=== PATIENT | female | born 1970 | race Hispanic/Latino ===

== ENCOUNTER 2018-08-21 10:25 | Emergency (ER) | payer OTHER ==
--- NOTE | 2018-08-21 10:31 | ED PDOC ---
Arrival/HPI - General Chief Complaint: Abnormal Skin Integrity Time Seen by Provider: 08/21/18 10:26 Historian: Patient - History of Present Illness Narrative History of Present Illness (Text): 08/21/18 10:52 47 y/o female with no significant PMH presents to the ED c/o left facial swelling x 1 day. Noticed a "pimple" to the left side of her nasal bridge and woke up this morning with increased swelling, redness, and warmth. Associated left sided blurry vision and photophobia. No new foods or lotions, NKDA, NKFA. Denies fever, chills, headache, eye pain, nausea, vomiting, dizziness, SOB, abdominal pain, neck pain, or any other associated symptoms. Past Medical History - Provider Review Nursing Documentation Reviewed: Yes - Past Medical History Past Medical History: No Previous - Psychiatric Hx Depression: Yes Hx Emotional Abuse: No Hx Physical Abuse: No - Past Surgical History Past Surgical History: No Previous - Suicidal Assessment Feels Threatened In Home Enviroment: No Family/Social History - Physician Review Nursing Documentation Reviewed: Yes Family/Social History: No Known Family HX Smoking Status: Current Some Days Smoker Hx Alcohol Use: Yes Allergies/Home Meds Allergies/Adverse Reactions: Allergies tolectin Allergy (Uncoded 08/21/18 10:34) RASH Home Medications: Home Meds Medication Instructions Recorded Confirmed No Known Home Med 08/21/18 08/21/18 Review of Systems - Review of Systems Constitutional: Normal Eyes: Vision Changes, Photophobia. absent: Eye Pain ENT: Other (left sided facial swelling). absent: Sore Throat, Sinus Congestion Respiratory: Normal. absent: SOB, Cough Cardiovascular: Normal. absent: Chest Pain, Palpitations, Syncope Gastrointestinal: Normal. absent: Nausea, Vomiting Musculoskeletal: Normal. absent: Back Pain, Neck Pain Skin: Cellulitis Neurological: Normal. absent: Headache, Dizziness Physical Exam Vital Signs Reviewed: Yes Temperature: Afebrile Blood Pressure: Normal Pulse: Regular Respiratory Rate: Normal Appearance: Positive for: Non-Toxic, Uncomfortable Pain Distress: None Mental Status: Positive for: Alert and Oriented X 3 ((+) ETOH on breath) - Systems Exam Head: Present: Atraumatic, Normocephalic, Swelling (Swelling to left side of face over zygoma and periorbitally with erythema; no fluctuance) Pupils: Present: PERRL, Other (vision grossly intact) Extroacular Muscles: Present: EOMI (without pain). No: Other (NO proptosis ) Conjunctiva: Present: Normal Mouth: Present: Moist Mucous Membranes Pharnyx: Present: Normal. No: ERYTHEMA, EXUDATE, Muffled/Hoarse Voice Nose (External): Present: Other (inflamed follice to left side of nasal bridge with (+) erythema, (+) tenderness, (-) fluctuance) Neck: Present: Normal Range of Motion. No: Meningeal Signs Respiratory/Chest: Present: Clear to Auscultation, Good Air Exchange. No: Respiratory Distress, Accessory Muscle Use, Wheezes, Decreased Breath Sounds Cardiovascular: Present: Regular Rate and Rhythm, Normal S1, S2 Upper Extremity: Present: Normal ROM Lower Extremity: Present: Normal ROM Neurological: Present: GCS=15, Speech Normal, Motor Func Grossly Intact, Normal Sensory Function, Gait Normal Skin: Present: Warm, Dry, Normal Color. No: Rashes Psychiatric: Present: Alert, Oriented x 3, Normal Insight, Normal Concentration, Normal Affect, Normal Mood Medical Decision Making ED Course and Treatment: Initial Plan: * Labs * Maxillofacial CT with IV contrast * Visual Acuity * IVF (+) ETOH on breath but patient denies alcohol use. Will get alcohol level. 10:46 Pt unable to tolerate fundoscopic exam secondary to photophobia. 11:42 Alcohol level elevated Bloodwork reviewed, significant for mild hypokalemia, elevated LFTs. Otherwise unremarkable. No leukocytosis 12:00 Patient unwilling to wait for CT imaging, demanding to have her IV line removed so she can leave the ED. Refusing prescriptions or further workup. In my opinion, patient is A&Ox3 and capable of making her own medical decisions at this time. Will have friend or family member assume care of patient from ED secondary to elevated alcohol level. Pt states she will followup with PMD today. Pt called boyfriend to pick her up. The patient is choosing to leave against medical advice. I have personally explained to the patient that choosing to do so may result in permanent bodily harm, disability, vision loss, or . I have discussed at great length that without further evaluation and monitoring there may be unforeseen circumstances and/or deterioration causing permanent bodily harm or as a result of their choice. The patient is alert, oriented, and shows the mental capacity to make cl ear decisions regarding the patients health care at this time. The patient continues to wish to leave against medical advice. In light of the patients decision to leave against medical advice, follow-up has been arranged and the patient is aware of the importance to following up as instructed. The patient has been advised that they should return to the emergency room immediately if they change their mind at any time, or if their condition begins to change or worsen in any way. 12:10 Patient's boyfriend, Andrew Ellison is here to assume care of patient. Effects and risks of alcohol intoxication, as well as risks of orbital and facial cellulitus explained to Mr. Ellison, who verbalized understanding. Both patient and Mr. Ellison signed discharge paperwork and AMA form. Risks of leaving ED and importance of prompt followup explained to both parties, who verbalized understanding. - Lab Interpretations Lab Results: 08/21/18 10:48 08/21/18 10:48 Lab Results 08/21/18 10:48: Alcohol, Quantitative 338 H* 08/21/18 10:48: Sodium 144, Potassium 3.4 L, Chloride 103, Carbon Dioxide 25, Anion Gap 19, BUN 5 L, Creatinine 0.5 L, Est GFR ( Amer) > 60, Est GFR (Non-Af Amer) > 60, Random Glucose 80, Calcium 8.7, Total Bilirubin 1.2, AST 209 H, ALT 111 H, Alkaline Phosphatase 115, Total Protein 7.8, Albumin 4.6, Globulin 3.2, Albumin/Globulin Ratio 1.5 08/21/18 10:48: PT 11.7, INR 1.04, APTT 34.0 08/21/18 10:48: WBC 6.6, RBC 4.03, Hgb 14.7, Hct 42.7, MCV 106.0 H, MCH 36.5 H, MCHC 34.4, RDW 12.4, Plt Count 138, MPV 10.8, Neut % (Auto) 44.5 L, Lymph % (Auto) 48.6 H, Barry % (Auto) 3.2, Eos % (Auto) 2.3, Baso % (Auto) 1.4, Lymph # (Auto) 3.2, Barry # (Auto) 0.2, Eos # (Auto) 0.2, Baso # (Auto) 0.09, Absolute Neuts (auto) 2.93 I have reviewed the lab results: Yes Disposition/Present on Arrival - Present on Arrival Any Indicators Present on Arrival: No History of DVT/PE: No History of Uncontrolled Diabetes: No Urinary Catheter: No History Surgical Site Infection Following: None - Disposition Have Diagnosis and Disposition been Completed?: No Diagnosis: Facial swelling, Cellulitis Disposition: AGAINST MEDICAL ADVICE Disposition Time: 12:00 Condition: GUARDED Discharge Instructions (ExitCare): Cellulitis (ED) Additional Instructions: Followup with PMD TODAY Followup with eye doctor within 2 days Return to ER with any new/worsening symptoms Referrals: Sandrita Hernandes MD [Primary Care Provider] - Follow up with primary Donnie Mueller MD [Staff Provider] - Follow up with primary Forms: [email or web address] ([place]ian)
[2018-08-21 10:34] VITALS: BMI 26.6
[2018-08-21 10:40] VITALS: BP 125/87; PULSE 98; RESP 18; TEMP 97.5; O2SAT 97
[2018-08-21] MEDS ORDERED: Sodium Chloride 0.9% 1,000 ML IV STA (10:45)
[2018-08-21 11:03] LABS: BASO # 0.09 K/mm3 (0.0-2.0); BASO % 1.4 % (0.0-3.0); EOS # 0.2 (0.0-0.7); EOS % 2.3 % (1.5-5.0); HEMOGLOBIN 14.7 g/dL (12.0-16.0); LYMPH # 3.2 (1.2-3.4); LYMPH % 48.6 % (22.0-35.0); MEAN CORPUSCULAR HEMOGLOBIN 36.5 pg (25.0-35.0); MEAN CORPUSCULAR HGB CONC 34.4 g/dl (31.0-37.0); MEAN PLATELET VOLUME 10.8 fl (7.0-11.0); MONO # 0.2 (0.1-0.6); MONO % 3.2 % (1.0-6.0); RBC 4.03 10^6/uL (3.5-6.1); RED CELL DISTRIBUTION WIDTH 12.4 % (11.5-14.5); WHITE BLOOD COUNT 6.6 10^3/uL (4.5-11.0)
[2018-08-21 11:10] LABS: ALB/GLOB RATIO 1.5 (1.1-1.8); ALBUMIN 4.6 g/dL (3.0-4.8); ALT/SGPT 111 U/L (7-56); AST/SGOT 209 U/L (14-36); BLOOD UREA NITROGEN 5 mg/dL (7-21); CALCIUM 8.7 mg/dL (8.4-10.5); GFR NON-AFRICAN AMERICAN > 60
[2018-08-21] MEDS ORDERED: Potassium Chloride 20 mEq ER Tab PO STA (11:13)
[2018-08-21 11:24] LABS: INR 1.04; PROTHROMBIN TIME 11.7 SECONDS (9.4-12.5)
== END 2018-08-21 12:07 | disposition left against medical advice (07) ==
LOC: ED 10:25
DX: L03.211 Cellulitis of face (principal); R22.0 Localized swelling, mass and lump, head
CPT/HCPCS: 80053; 80320; 85025; 85610; 85730; 99285; J7030